=== PATIENT | male | born 1965 | race Caucasian/White ===

== ENCOUNTER 2019-11-27 12:02 | Emergency (ER) | payer OTHER ==
--- NOTE | 2019-11-27 13:56 | ED ---
Complex/Multi-Sys Presentation - HPI Summary HPI Summary: 54 year old M arriving via private car to [facility] accompanied by complains of fatigue, generalized weakness, dizziness, syncope, dark stools, confusion, unsteady gait, falls, speech difficulties starting 2 months ago, and chest heaviness starting this morning. Patient developed fatigue and weakness 2 months ago. Was seen by his primary care provider, placed on Wellbutrin in Oct 2018, developed side effects. Patient had dizziness and syncope while taking it. He has since sopped taking it. reports dark stools which started as intermittent and has become more constant. No abdominal pain. also reports intermittent confusion, unsteady gait, falls, speech difficulties. Had blood work done recently which showed hyponatremia. Sodium 124 per . His primary care provider called yesterday and was told to come to ED to r/o stroke. Today he developed chest heaviness which started after he woke up. No chest pain currently. The patient rates the pain 2/10 in severity. Symptoms aggravated by nothing. Symptoms alleviated by nothing. Admits to drinking ETOH daily. Usually drinks wine and liquor. Usually has half pint to one pint of liquor and some beers. Has been trying to drink less in the last few weeks. Had one beer today. Has been having withdrawal symptoms. Medications reviewed. Allergies noted. - History Of Current Complaint Chief Complaint: EDNeurologicalDeficit Time Seen by Provider: 11/27/19 13:54 Hx Obtained From: Patient, Family/Hide Puller - Onset/Duration: Lasting Weeks - 8, Still Present Severity Currently: Mild - 2/10 Aggravating Factor(s): Nothing Alleviating Factor(s): Nothing - Allergies/Home Medications Allergies/Adverse Reactions: Allergies Allergy/AdvReac Type Severity Reaction Status Date / Time No Known Allergies Allergy Verified 11/27/19 14:49 Home Medications: Home Medications Cholecalciferol TAB* [Vitamin D TAB*] 1,000 unit PO DAILY 11/27/19 [History Confirmed 11/27/19] Thiamine TAB* [Vitamin B-1 TAB 100 MG*] 100 mg PO DAILY 30 Days #30 tab [Rx] Valsartan/Hydrochlorothiazide [Valsartan-Hctz 160-25 mg Tab] 1 tab PO DAILY [History Confirmed 11/27/19] Vitamin B Complex TAB* [B Complex-50*] 1 tab PO DAILY 11/27/19 [History Confirmed 11/27/19] PMH/Surg Hx/FS Hx/Imm Hx Infectious Disease History: No Infectious Disease History: Denies: Traveled Outside the [place] in Last 30 Days - Family History Known Family History: Positive: Other - MS - Social History Alcohol Use: Daily Review of Systems Positive: Fatigue Positive: Other - chest heaviness Positive: Other - dark stools. Negative: Abdominal Pain Neurological/Mental Status: Other - Dizziness, confusion, unsteady gait, speech difficulties Positive: Weakness, Syncope All Other Systems Reviewed And Are Negative: Yes Physical Exam - Summary Physical Exam Summary: Constitutional: Well-developed, Well-nourished, Alert. (-) Distressed Skin: Warm, Dry HENT: Normocephalic; Atraumatic Eyes: Conjunctiva normal Neck: Musculoskeletal ROM normal neck. (-) JVD, (-) Nuchal rigidity Cardio: Rhythm regular, rate normal, Heart sounds normal; Intact distal pulses; Radial pulses are 2+ and symmetric. (-) Murmur Pulmonary/Chest wall: Effort normal. (-) Respiratory distress, (-) Wheezes, (-) Rales Abd: Soft. (-) Tenderness, (-) Distension, (-) Guarding, (-) Rebound Rectal exam chaperoned by Ranjit RN: External hemorrhoids Musculoskeletal: (-) Edema Lymph: (-) Cervical adenopathy Neuro: Alert, PERRL, Oriented x3, Strength normal, Cranial nerves II-XII are grossly intact. SILT, Strength 5/5 BUE and BLE, (-) Dysmetria, (-) Nystagmus, ambulates w steady gait. GCS 15. Psych: Mood and affect Normal Triage Information Reviewed: Yes Vital Signs On Initial Exam: Initial Vitals Temp Pulse Resp BP Pulse Ox 97.3 F 78 16 122/71 95 11/27/19 12:03 11/27/19 12:03 11/27/19 12:03 11/27/19 12:03 11/27/19 12:03 Vital Signs Reviewed: Yes Procedures - Sedation Patient Received Moderate/Deep Sedation with Procedure: No Diagnostics - Vital Signs Vital Signs Temp Pulse Resp BP Pulse Ox 11/27/19 12:03 97.3 F 78 16 122/71 95 - Laboratory Result Diagrams: 11/27/19 14:36 11/27/19 14:36 Lab Statement: Any lab studies that have been ordered have been reviewed, and results considered in the medical decision making process. - Radiology CXR Radiology Interpretation Completed By: Radiologist - IMPRESSION: No acute cardiopulmonary process by radiograph. ED physician has reviewed this imaging report. - CT BRAIN CT Interpretation Completed By: Radiologist - IMPRESSION: NO ACUTE INTRACRANIAL PATHOLOGY. ED physician has reviewed this imaging report. - EKG 1211 Cardiac Rate: NL - 71 BPM EKG Rhythm: Sinus Rhythm Summary of EKG Findings: An EKG at 1211 reveals normal sinus rhythm 71 BPM. Incomplete RBBB. No STEMI. No acute changes. Compared to 2011, new partial RBBB. ED physician has reviewed and interpreted this EKG. Complex Multi-Symp Course/Dx Course Of Treatment: 54 y/o male w hx EtOH abuse p/w multiple complaints. - had episode of weakness/syncope, not feeling well in setting of buproprion use but resolved when stopping medication. - reports dark stools, Hb stable, fecal occult positive, can f/u w PCP could be 2/2 gastritis from EtOH. - gait abnormality, episode of speech problems, none currently and ongoing for some time, CT head negative, could be see in setting of EtOH use. D/w neuro who agrees w plan and recommends thiamine. - episode of chest tightness now resolved, patient attributes to anxiety. EKG unremarkable, Trop negative, CXR normal. Do not suspect ACS. Heart score 2, low risk. - labs w hyponatremia likely 2/2 EtOH. Does not appear symptomatic at this time - Diagnoses Provider Diagnoses: Hyponatremia, Gait abnormality, Blood in stool, Alcohol use disorder - Physician Notifications Discussed Care Of Patient With: Dipesh Barney - Recommended thiamine Time Discussed With Above Provider: 15:58 Discharge ED - Sign-Out/Discharge Documenting (check all that apply): Patient Departure - Discharge Plan Condition: Stable Disposition: HOME Prescriptions: Thiamine TAB* [Vitamin B-1 TAB 100 MG*] 100 mg PO DAILY 30 Days #30 tab Patient Education Materials: Hyponatremia (ED), Alcohol Use Disorder (ED) Referrals: Lamont Garcia AD OPERATIONS INTERN [Primary Care Provider] - Additional Instructions: You were seen in the emergency department for fatigue, abnormal gait, low sodium and blood in her stool. Your sodium was 128, this can be seen in the setting of alcohol use. Please take thiamine once a day as a vitamin. Please follow up with your doctor as your stool showed scant blood in the stool. Please follow up with your primary care doctor in next 2-3 days and return to emergency department for numbness, weakness, falling, confusion, chest pain, worsening or concerning symptoms. It was a pleasure taking care of you today. - Billing Disposition and Condition Condition: STABLE Disposition: Home - Attestation Statements Document Initiated by Arcenio: Yes Documenting Scribe: Erin Gutierrez Provider For Whom Arcenio is Documenting (Include Credential): Juan Tomas MD Scribe Attestation: IErin, scribed for Juan Tomas MD on 11/27/19 at 1653. Scribe Documentation Reviewed: Yes Provider Attestation: The documentation as recorded by the Erin ford accurately reflects the service I personally performed and the decisions made by me, Juan Tomas MD Status of Scribadriana Document: Viewed
--- OUTSIDE RECORDS SUMMARY | 2019-11-27 14:01 | XMS REPORT | Continuity of Care Document ---
:1965 External Reference #:[id number] Author Name [facility] (transmitted by agent of provider Karlene Boone) Address [address] [place] [address] Problems Description No Information Available Social History Type Date Description Comments Sex Unknown Tobacco Use Reviewed: 01/23/19 Heavy tobacco smoker 1 and 1/2 PPD .... (more than 10 started as a cigarettes/day) teenager Smoking Status Reviewed: 02/06/19 Heavy tobacco smoker 1 and 1/2 PPD .... (more than 10 started as a cigarettes/day) teenager ETOH Use Currently consumes 6 beers per night alcohol Tobacco Use Start: Unknown Patient is a current smoker, smokes every day Recreational Drug Use Denies Drug Use Enjoy Exercising Enjoys exercising he is very active at work Allergies, Adverse Reactions, Alerts Description No Known Drug Allergies Medications Active Medications SIG Qnty Indications Ordering Date Provider Vitamin D take 1 capsule by 16caps E55.9 Lamont RSrikanth 10/15/2019 (Ergocalciferol) mouth twice weekly Jose, TRACK MAINTAINER-C for 8 weeks 1.25mg (58722 Ut) Capsules Valsartan-Hydrochlor 1 by mouth every 90tabs I10 Lamont RSrikanth 10/15/2019 othiazide day, replaces PAULA GarciaP-C 160-25mg lisinopril Tablets History Medications Bupropion 1 by mouth 90tabs F32.89 Lamont RSrikanth 10/08/2019 - Hydrochloride ER (XL) every day Jose, TRACK MAINTAINER-C 10/15/2019 150mg Tablets ER 24HR Immunizations CPT Code Status Date Vaccine Lot # [id number] Given 01/23/2019 Tdap (Adacel) [id number] Refused 10/15/2019 Influenza Virus Vaccine, Quadrivalent, 3 Yr > Quad , Preserv Free [id number] Refused 10/08/2019 Influenza Virus Vaccine, Quadrivalent, 3 Yr > Quad , Preserv Free Vital Signs Date Vital Result Comment 10/28/2019 8:57am Weight 174.00 lb Weight 78.926 kg BP Systolic 130 mmHg BP Diastolic 78 mmHg Heart Rate 88 /min Body Temperature 98.0 F Respiratory Rate 16 /min 10/15/2019 3:42pm Weight 176.00 lb Weight 79.834 kg BP Systolic 120 mmHg BP Diastolic 78 mmHg Heart Rate 73 /min Body Temperature 98.2 F Respiratory Rate 16 /min O2 % BldC Oximetry 98 % Results Test Acquired Date Facility Test Result H/L Range Note Comp Metabolic 10/28/2019 [facility] Sodium 127 mmol/ L Low 135-145 Panel [phone] Potassium 4.6 mmol/L Normal 3.5-5.0 Chloride 89 mmol/L Low 101-111 Co2 Carbon Dioxide 30 mmol/L Normal 22-32 Anion Gap 8 mmol/L Normal 2-11 Glucose 99 mg/dL Normal 70-100 Blood Urea Nitrogen 11 mg/dL Normal 6-24 Creatinine 0.83 mg/dL Normal 0.67-1.17 BUN/Creatinine Ratio 13.3 Normal 8-20 Calcium 9.6 mg/dL Normal 8.6-10.3 Total Protein 7.1 g/dL Normal 6.4-8.9 Albumin 4.3 g/dL Normal 3.2-5.2 Globulin 2.8 g/dL Normal 2-4 Albumin/Globulin Ratio 1.5 Normal 1-3 Total Bilirubin 1.10 mg/dL High 0.2-1.0 Alkaline Phosphatase 120 U/L High 34-104 Alt 93 U/L High 7-52 Ast 124 U/L High 13-39 Egfr Non- 96.2 >60 Egfr 116.4 >60 1 CBC Auto 10/28/2019 [facility] White Blood 5.6 10^3/ uL Normal 3.5-10.8 Diff [phone] Count Red Blood Count 4.40 10^6/uL Normal 4.18-5.48 Hemoglobin 15.9 g/dL Normal 14.0-18.0 Hematocrit 45 % Normal 42-52 Mean Corpuscular Volume 103 fL High 80-94 Mean Corpuscular Hemoglobin 36 pg High 27-31 Mean Corpuscular HGB Conc 35 g/dL Normal 31-36 Red Cell Distribution Width 14 % Normal 10-15 Platelet Count 141 10^3/uL Low 150-450 Mean Platelet Volume 7.9 fL Normal 7.4-10.4 Abs Neutrophils 3.7 10^3/uL Normal 1.5-7.7 Abs Lymphocytes 1.0 10^3/uL Normal 1.0-4.8 Abs Monocytes 0.9 10^3/uL High 0-0.8 Abs Eosinophils 0.0 10^3/uL Normal 0-0.6 Abs Basophils 0.0 10^3/uL Normal 0-0.2 Abs Nucleated RBC 0.0 10^3/uL Granulocyte % 65.4 % Lymphocyte % 17.2 % Monocyte % 15.9 % Eosinophil % 0.8 % Basophil % 0.7 % Nucleated Red Blood Cells % 0.2 Laboratory 10/28/2019 [facility] TSH (Thyroid 2.31 Normal 0.34-5.60 2 test finding [phone] Stim Horm) mcIU/mL Laboratory 10/08/2019 [facility] Vitamin D 14.9 ng/ mL Low 20-50 3 test finding [phone] Total 25(Oh) Vitamin B12 548 pg/mL Normal 180-914 4 Testosterone 10/08/2019 [facility] Testosterone 329 ng/dL 240-950 5 Profile [phone] Free Testosterone ng/dl 4.94 ng/dL 3.87-14.7 6 Bioavailable Testosterone 39 ng/dL Abnormal 50-190 7 Laboratory 10/08/2019 [facility] TSH (Thyroid 2.27 Normal 0.34-5.60 8 test finding [phone] Stim Horm) mcIU/mL Comp Metabolic 08/30/2019 [facility] Sodium 133 mmol/ L Low 135-145 Panel [phone] Potassium 4.0 mmol/L Normal 3.5-5.0 Chloride 97 mmol/L Low 101-111 Co2 Carbon Dioxide 29 mmol/L Normal 22-32 Anion Gap 7 mmol/L Normal 2-11 Glucose 83 mg/dL Normal 70-100 Blood Urea Nitrogen 5 mg/dL Low 6-24 Creatinine 0.76 mg/dL Normal 0.67-1.17 BUN/Creatinine Ratio 6.6 Low 8-20 Calcium 9.4 mg/dL Normal 8.6-10.3 Total Protein 7.0 g/dL Normal 6.4-8.9 Albumin 4.2 g/dL Normal 3.2-5.2 Globulin 2.8 g/dL Normal 2-4 Albumin/Globulin Ratio 1.5 Normal 1-3 Total Bilirubin 0.70 mg/dL Normal 0.2-1.0 Alkaline Phosphatase 70 U/L Normal 34-104 Alt 48 U/L Normal 7-52 Ast 75 U/L High 13-39 Egfr Non- 106.5 >60 Egfr 128.8 >60 9 Lipid Profile 08/30/2019 [facility] Triglycerides 97 mg/dL 10 (Trig/Chol/HDL) [phone] Cholesterol 162 mg/dL 11 HDL Cholesterol 75.0 mg/dL 12 LDL Cholesterol 68 mg/dL 13 1 Because ethnic data is not always readily available, this report includes an eGFR for both -Americans and non- Americans. The National Kidney Disease Education Program (NKDEP) does not endorse the use of the MDRD equation for patients that are not between the ages of 18 and 70, are , have extremes of body size, muscle mass, or nutritional status, or are non- or non-. According to the National Kidney Foundation, irrespective of diagnosis, the stage of the disease is based on the level of kidney function: Stage Description GFR(mL/min/1.73 m(2)) 1 Kidney damage with normal or decreased GFR 90 2 Kidney damage with mild decrease in GFR 60-89 3 Moderate decrease in GFR 30-59 4 Severe decrease in GFR 15-29 5 Kidney failure <15 (or dialysis) 2 [id number] 3 Total 25-Hydroxyvitamin D2 and D3 (25-OH-VitD) <10 ng/mL (severe deficiency) 10-19 ng/mL (mild to moderate deficiency) 20-50 ng/mL (optimum levels) 51-80 ng/mL (increased risk of hypercalciuria) >80 ng/mL (toxicity possible) 4 Normal Range 180 to 914 Indeterminate Range 145 to 180 Deficient Range <145 5 ADDITIONAL INFORMATION Testing performed by Liquid Chromatography-Tandem Mass Spectrometry (LC-MS/MS). This test was developed and its performance characteristics determined by [facility] in a manner consistent with CLIA requirements. This test has not been cleared or approved by the U.S. Food and Drug Administration. 6 ADDITIONAL INFORMATION Testing performed by Equilibrium Dialysis. This test was developed and its performance characteristics determined by [facility] in a manner consistent with CLIA requirements. This test has not been cleared or approved by the U.S. Food and Drug Administration. 7 ADDITIONAL INFORMATION Testing performed by Differential Precipitation. This test was developed and its performance characteristics determined by [facility] in a manner consistent with CLIA requirements. This test has not been cleared or approved by the U.S. Food and Drug Administration. Test Performed by: [facility] [place] [address] Lipcoat Sprayer: Bandar Granger M.D. Ph.D.; CLIA# [id number] 9 Because ethnic data is not always readily available, this report includes an eGFR for both -Americans and non- Americans. The National Kidney Disease Education Program (NKDEP) does not endorse the use of the MDRD equation for patients that are not between the ages of 18 and 70, are , have extremes of body size, muscle mass, or nutritional status, or are non- or non-. According to the National Kidney Foundation, irrespective of diagnosis, the stage of the disease is based on the level of kidney function: Stage Description GFR(mL/min/1.73 m(2)) 1 Kidney damage with normal or decreased GFR 90 2 Kidney damage with mild decrease in GFR 60-89 3 Moderate decrease in GFR 30-59 4 Severe decrease in GFR 15-29 5 Kidney failure <15 (or dialysis) 10 Desirable: <150 Borderline High: 150-199 High: 200-499 Very High: >500 11 Desirable: <200 Borderline High: 200-239 High: >239 12 Low: <40 Desirable: 40-60 High: >60 13 Desirable: <100 Near Optimal: 100-129 Borderline High: 130-159 High: 160-189 Very High: >189 Procedures Date Code Description Status 10/28/2019 29514 EKG, at Least 12 Leads w/Interpretation and Report Completed 02/07/2017 11721089 Colonoscopy Completed Medical Devices Description No Information Available Encounters Type Date Location Provider Dx Diagnosis Office Visit 10/28/2019 Main Office Traci Pedraza5 Syncope and collapse 9:00a Office Visit 10/15/2019 Main Office Lamont Garcia, E55.9 Vitamin D deficiency, 3:45p TRACK MAINTAINER-C unspecified F32.89 Other specified depressive episodes R53.1 Weakness R05 Cough I10 Essential (primary) hypertension Office Visit 10/08/2019 1:45p Main Office Shawnti R. F32.89 Other specified Storm, TRACK MAINTAINER-C depressive episodes R53.83 Other fatigue Office Visit 08/30/2019 10:00a Main Office Shawnti R. Storm, I10 Essential (primary) TRACK MAINTAINER-C hypertension Z72.0 Tobacco use Assessments Date Code Description Provider 11/11/2019 K70.9 Alcoholic liver disease, unspecified [facility] 10/28/2019 R55 Syncope and collapse Jv Harper MD 10/15/2019 E55.9 Vitamin D deficiency, unspecified Shawnti R. Storm, TRACK MAINTAINER-C 10/15/2019 F32.89 Other specified depressive episodes Shawnti R. Storm, TRACK MAINTAINER- C 10/15/2019 R53.1 Weakness Shawnti R. Storm, TRACK MAINTAINER-C 10/15/2019 R05 Cough Shawnti R. Storm, TRACK MAINTAINER-C 10/15/2019 I10 Essential (primary) hypertension Shawnti R. Storm, TRACK MAINTAINER-C 10/08/2019 F32.89 Other specified depressive episodes Shawnti R. Storm, TRACK MAINTAINER- C 10/08/2019 R53.83 Other fatigue Shawnti R. Storm, TRACK MAINTAINER-C 08/30/2019 I10 Essential (primary) hypertension NAYELI Higgins 08/30/2019 Z72.0 Tobacco use NAYELI Higgins Plan of Treatment Future Appointment(s):03/03/2020 8:45 am - NAYELI Higgins at Main [id number]/28/2019 - Jv Harper, MDR55 Syncope and collapseComments:He has had an episode of cardiac sounding syncope, several days ago. at this point he is fully asymptomatic. the symptoms are not consistent with stroke or TIA, they do not seem fully consistent with aseizure either with the absence of post ictal state and at least one observed episode that did not show any convulsions.I am very concerned that this issue represents a paroxysmal episode of severe cardiac arrhythmia. It is actually happened several times based on history.EKG shows a normal sinus rhythm today.We collected some labs today to ensure an absence of metabolic causes, and I recommended he see cardiology as soon as possible to discuss further testing.Referral:Ryan Wolfe D.O., Cardiology/Phys/OsteoFollow up:Refer to cardiology, relatively urgent Functional Status Description No Information Available Mental Status Description No Information Available Referrals Refer to Dr Reason for Referral Status Appt Date Ryan Wolfe D.O. Scheduled 11/11/[address] [address] [phone]
--- OUTSIDE RECORDS SUMMARY | 2019-11-27 14:01 | XMS REPORT | Continuity of Care Document ---
:1965 External Reference #:[id number] Author Name Jv Harper MD Address [address] [place] [address] Problems Description No Information Available Social History [...] D take 1 capsule by 16caps E55.9 Emilioi R. 10/15/2019 (Ergocalciferol) mouth twice weekly Jose WORD PROCESSOR TECHNICIAN-C for 8 weeks 1.25mg (96697 Ut) Capsules Valsartan-Hydrochlor 1 by mouth every 90tabs I10 Jamwnti R. 10/15/2019 othiazide day, replaces Jose, WORD PROCESSOR TECHNICIAN-C 160-25mg lisinopril Tablets History Medications Bupropion 1 by mouth 90tabs F32.89 Jamwnti R. 10/08/2019 - Hydrochloride ER (XL) every day Jose, WORD PROCESSOR TECHNICIAN-C 10/15/2019 150mg Tablets ER 24HR Immunizations CPT Code Status Date Vaccine Lot # [id number] Given 01/23/2019 Tdap (Adacel) [id number] Refused 10/15/2019 Influenza Virus Vaccine, Quadrivalent, 3 Yr > Quad , Preserv Free [id number] Refused 10/08/2019 Influenza Virus Vaccine, Quadrivalent, 3 [...] Date Facility Test Result H/L Range Note CBC Auto 10/28/2019 [facility] White Blood 5.6 10^3/ uL Normal 3.5-10.8 Diff [phone] Count Red Blood Count 4.40 10^6/uL Normal [...] Nucleated Red Blood Cells % 0.2 Laboratory test 10/28/2019 [facility] TSH (Thyroid < pending> finding [phone] Stim Horm) Order 10/28/2019 In Office EKG <pending> Laboratory test 10/08/2019 [facility] Vitamin D 14.9 ng/mL Low 20-50 1 finding [phone] Total 25(Oh) Vitamin B12 548 pg/mL Normal 180-914 2 Testosterone 10/08/2019 [facility] Testosterone 329 ng/dL 240-950 3 Profile [phone] Free Testosterone ng/dl 4.94 ng/dL 3.87-14.7 4 Bioavailable Testosterone 39 ng/dL Abnormal 50-190 5 Laboratory 10/08/2019 [facility] TSH (Thyroid 2.27 Normal 0.34-5.60 6 test finding [phone] Stim Horm) mcIU/mL Comp Metabolic 08/30/2019 [facility] Sodium 133 mmol/ L Low 135-145 Panel [phone] Potassium 4.0 mmol/L Normal 3.5-5.0 Chloride 97 [...] Egfr Non- 106.5 >60 Egfr 128.8 >60 7 Lipid Profile 08/30/2019 [facility] Triglycerides 97 mg/dL 8 (Trig/Chol/HDL) [phone] Cholesterol 162 mg/dL 9 HDL Cholesterol 75.0 mg/dL 10 LDL Cholesterol 68 mg/dL 11 1 Total 25-Hydroxyvitamin D2 and D3 (25-OH-VitD) <10 ng/mL (severe deficiency) 10-19 ng/mL (mild to moderate deficiency) 20-50 ng/mL (optimum levels) 51-80 ng/mL (increased risk of hypercalciuria) >80 ng/mL (toxicity possible) 2 Normal Range 180 to 914 Indeterminate Range 145 to 180 Deficient Range <145 3 ADDITIONAL INFORMATION Testing performed by Liquid Chromatography-Tandem Mass Spectrometry (LC-MS/MS). This test was developed and its performance characteristics determined by [facility] in a manner consistent with CLIA requirements. This test has not been cleared or approved by the U.S. Food and Drug Administration. 4 ADDITIONAL INFORMATION Testing performed by [facility]. This test was developed and its performance characteristics determined by [facility] in a manner consistent with CLIA requirements. This test has not been cleared or approved by the U.S. Food and Drug Administration. 5 ADDITIONAL INFORMATION Testing performed by Differential Precipitation. This test was developed and its performance characteristics determined by [facility] in a manner consistent with CLIA requirements. This test has not been cleared or approved by the U.S. Food and Drug Administration. Test Performed by: [facility] - [address] [address] Line Out Worker: Bandar Granger M.D. Ph.D.; CLIA# [id number] 7 Because ethnic data is not always readily [...] 15-29 5 Kidney failure <15 (or dialysis) 8 Desirable: <150 Borderline High: 150-199 High: 200-499 Very High: >500 9 Desirable: <200 Borderline High: 200-239 High: >239 10 Low: <40 Desirable: 40-60 High: >60 11 Desirable: <100 Near Optimal: 100-129 Borderline High: 130-159 High: 160-189 Very High: >189 Procedures Date Code Description Status 10/28/2019 94106 EKG, at Least 12 Leads w/Interpretation and Report Completed 02/07/2017 84238571 Colonoscopy Completed Medical Devices Description No Information Available Encounters Type Date Location Provider Dx Diagnosis Office Visit 10/08/2019 Main Office Lamont Garcia, F32.89 Other specified 1:45p WORD PROCESSOR TECHNICIAN-C depressive episodes R53.83 Other fatigue Office Visit 08/30/2019 10:00a Main Office Shawjacei R. Jose, I10 Essential (primary) WORD PROCESSOR TECHNICIAN-C hypertension Z72.0 Tobacco use Assessments Date Code Description Provider 10/28/2019 R55 Syncope and collapse Jv Harper MD 10/15/2019 E55.9 Vitamin D deficiency, unspecified Emilioi R. Jose, WORD PROCESSOR TECHNICIAN-C 10/15/2019 F32.89 Other specified depressive episodes Shawnti R. Jose, WORD PROCESSOR TECHNICIAN- C 10/15/2019 R53.1 Weakness Shawnti R. Jose, WORD PROCESSOR TECHNICIAN-C 10/15/2019 R05 Cough Shawnti R. Storm, WORD PROCESSOR TECHNICIAN-C 10/15/2019 I10 Essential (primary) hypertension Shawnti R. Jose, WORD PROCESSOR TECHNICIAN-C 10/08/2019 F32.89 Other specified depressive episodes Shawnti R. Jose, WORD PROCESSOR TECHNICIAN- C 10/08/2019 R53.83 Other fatigue Shawnti R. Jose, WORD PROCESSOR TECHNICIAN-C 08/30/2019 I10 Essential (primary) hypertension Shawnti R. Jose, WORD PROCESSOR TECHNICIAN-C 08/30/2019 Z72.0 Tobacco use NAYELI Higgins Plan of Treatment Future Appointment(s):03/03/2020 8:45 am - NAYELI Higgins at Main [id number]/28/2019 - Jv Harper, MDR55 Syncope and collapseComments:He [...] as soon as possible to discuss further testing.Follow up:Refer to cardiology, relatively urgent Functional Status Description No Information Available Mental Status Description No Information Available Referrals Description No Information Available
--- OUTSIDE RECORDS SUMMARY | 2019-11-27 14:01 | XMS REPORT | Continuity of Care Document ---
:1965 External Reference #:[id number] Author Name Stefany Navarrete M.D. (transmitted by agent of provider Nurys Easton) Address [address] [facility] [address] [place] [address] Care Team Providers Name Role Phone Jose NORMA Miguel - Family Care Team Information Study Assistant [phone] Problems Description No Information Available Social History Type Date Description Comments Sex Unknown ETOH Use consumes 2-3 beers per day Tobacco Use Start: Unknown Heavy tobacco smoker (more than 10 cigarettes/day) Recreational Drug Use Regularly uses Marijuana Smoking Status Reviewed: 11/06/19 Heavy tobacco smoker (more than 10 cigarettes/day) Exercise Type/Frequency 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 Allergies, Adverse Reactions, Alerts Description No Known Drug Allergies Medications Active Medications SIG Qnty Indications Ordering Provider Date Vitamin D 50,000 Take one tab Unknown Units Monday and Monday Valsartan-Hydrochloro 1 by mouth every Unknown thiazide day 160-25mg Tablets Immunizations Description No Information Available Vital Signs Date Vital Result Comment 11/06/2019 1:53pm Height 69.5 inches 5'9.50" Weight 174.12 lb with shoes Heart Rate 98 /min Radial,regular BP Systolic Sitting 118 mmHg LA, reg cuff BP Diastolic Sitting 70 mmHg LA, reg cuff BP Systolic Standing 120 mmHg Ra sitting,reg cuff BP Diastolic Standing 68 mmHg Ra sitting,reg cuff BP Systolic Lying Down 108 mmHg Ra standing,reg cuff BP Diastolic Lying Down 66 mmHg Ra standing,reg cuff BMI (Body Mass Index) 25.3 kg/m2 Ejection Fraction NA No echo Results Description No Information Available Procedures Date Code Description Status 11/11/2019 98212 Holter Monitor Review (24 hr)dr review & interp only Completed 11/07/2019 71130 ECG Monitor/Recording W/Visual Superimposition Scanning Completed 11/07/2019 98797 ECG Monitor/Recording W/Visual Superimposition Scanning Completed 11/06/2019 23868 EKG Tracing & Interpretation Completed Medical Devices Description No Information Available Encounters Type Date Location Provider Dx Diagnosis Office Visit 11/06/2019 [facility] Stefany SSrikanth I10 Essential ( primary) 2:20p Marlon Navarrete hypertension R53.83 Other fatigue R55 Syncope and collapse R00.0 Tachycardia, unspecified R94.31 Abnormal electrocardiogram [ECG] [EKG] F17.210 Nicotine dependence, cigarettes, uncomplicated Assessments Date Code Description Provider 11/11/2019 R55 Syncope and collapse Stefany Navarrete M.D. 11/07/2019 R55 Syncope and collapse Stefany Navarrete M.D. 11/07/2019 R55 Syncope and collapse Nurse Visit cc 11/06/2019 I10 Essential (primary) hypertension Stefany Navarrete M.D. 11/06/2019 R53.83 Other fatigue Stefany Navarrete M.D. 11/06/2019 R55 Syncope and collapse Stefany Navarrete M.D. 11/06/2019 R00.0 Tachycardia, unspecified Stefany Navarrete M.D. 11/06/2019 R94.31 Abnormal electrocardiogram [ECG] [EKG] Stefany Navarrete M.D. 11/06/2019 F17.210 Nicotine dependence, cigarettes, Stefany Navarrete M.D. uncomplicated Plan of Treatment Future Appointment(s):01/21/2020 4:20 pm - Stefany Navarrete M.D. at [facility]11/29/2019 2:00 pm - [place] [facility] Schedule at [facility]12/10/2019 10:00 am - [place] [facility] Schedule at [facility]2019 10:30 am - Gurdeep Melchor.D. at [facility]11/06/2019 - Stefany Navarrete M.D.I10 Essential (primary) pswytdpgamulX06.83 Other evpgtudE47 Syncope and collapseNew Orders:Echocardiogram, Scheduled: tress Test, Exercise Echocardiogram, Scheduled: 12/10/19Follow up:ov 4-8 wks ov to discuss all mlinlG66.0 Tachycardia, naqfmseskdbG00.31 Abnormal electrocardiogram [ECG] [EKG]F17.210 Nicotine dependence, cigarettes, uncomplicated Functional Status Description No Information Available Mental Status Description No Information Available Referrals Description No Information Available
--- OUTSIDE RECORDS SUMMARY | 2019-11-27 14:01 | XMS REPORT | Continuity of Care Document ---
:1965 External Reference #:[id number] Author Name [facility] (transmitted by agent of provider Deidra Price) Address [address] [place] [address] Problems Description No Information Available Social History Type Date Description Comments Sex Unknown Tobacco Use Reviewed: 01/23/19 Heavy tobacco smoker 1 and 1/ PPD .... (more than 10 started as [...] Lamont RSrikanth 10/15/2019 (Ergocalciferol) mouth twice weekly Jose IDENTIFICATION TECHNICIAN-C for 8 weeks 1.25mg (46440 Ut) Capsules Valsartan-Hydrochlor 1 by mouth every 90tabs I10 Lamont RSrikanth 10/15/2019 othiazide day, replaces Jose, IDENTIFICATION TECHNICIAN-C 160-25mg lisinopril Tablets History Medications Bupropion 1 by mouth 90tabs F32.89 Jamwzana R. 10/08/2019 - Hydrochloride ER (XL) every day Jose, IDENTIFICATION TECHNICIAN-C 10/15/2019 150mg Tablets ER 24HR Immunizations CPT Code Status Date Vaccine Lot # [id number] Given 01/23/2019 Tdap (Adacel) [id number] Refused 10/15/2019 Influenza Virus Vaccine, Quadrivalent, 3 Yr > Quad , Preserv Free 51407 Refused 10/08/2019 Influenza Virus Vaccine, Quadrivalent, 3 [...] Test Result H/L Range Note Comp Metabolic 11/11/2019 [facility] Sodium 127 mmol/ L Low 135-145 Panel [phone] Potassium 4.4 mmol/L Normal 3.5-5.0 Chloride 88 mmol/L Low 101-111 Co2 Carbon Dioxide 30 mmol/L Normal 22-32 Anion Gap 9 mmol/L Normal 2-11 Glucose 139 mg/dL High 70-100 Blood Urea Nitrogen 10 mg/dL Normal 6-24 Creatinine 0.84 mg/dL Normal 0.67-1.17 BUN/Creatinine Ratio 11.9 Normal 8-20 Calcium 9.5 mg/dL Normal 8.6-10.3 Total Protein 7.0 g/dL Normal 6.4-8.9 Albumin 4.4 g/dL Normal 3.2-5.2 Globulin 2.6 g/dL Normal 2-4 Albumin/Globulin Ratio 1.7 Normal 1-3 Total Bilirubin 0.70 mg/dL Normal 0.2-1.0 Alkaline Phosphatase 149 U/L High 34-104 Alt 54 U/L High 7-52 Ast 88 U/L High 13-39 Egfr Non- 94.9 >60 Egfr 114.8 >60 1 Comp Metabolic 10/28/2019 [facility] Sodium 127 mmol/ L Low 135-145 Panel [phone] Potassium 4.6 mmol/L Normal 3.5-5.0 Chloride 89 [...] Egfr Non- 96.2 >60 Egfr 116.4 >60 2 CBC Auto 10/28/2019 [facility] White Blood 5.6 10^3/ uL Normal 3.5-10.8 Diff [phone] Count Red Blood Count 4.40 10^6/uL Normal [...] Red Blood Cells % 0.2 Laboratory 10/28/2019 [facility] TSH (Thyroid 2.31 Normal 0.34-5.60 3 test finding [phone] Stim Horm) mcIU/mL Laboratory 10/08/2019 [facility] Vitamin D 14.9 ng/ mL Low 20-50 4 test finding [phone] Total 25(Oh) Vitamin B12 548 pg/mL Normal 180-914 5 Testosterone 10/08/2019 [facility] Testosterone 329 ng/dL 240-950 6 Profile [phone] Free Testosterone ng/dl 4.94 ng/dL 3.87-14.7 7 Bioavailable Testosterone 39 ng/dL Abnormal 50-190 8 Laboratory 10/08/2019 [facility] TSH (Thyroid 2.27 Normal 0.34-5.60 9 test finding [phone] Stim Horm) mcIU/mL Comp Metabolic 08/30/2019 [facility] Sodium 133 mmol/ L Low 135-145 Panel [phone] Potassium 4.0 mmol/L Normal 3.5-5.0 Chloride 97 [...] Egfr Non- 106.5 >60 Egfr 128.8 >60 10 Lipid Profile 08/30/2019 [facility] Triglycerides 97 mg/dL 11 (Trig/Chol/HDL) [phone] Cholesterol 162 mg/dL 12 HDL Cholesterol 75.0 mg/dL 13 LDL Cholesterol 68 mg/dL 14 1 Because ethnic data is not always [...] 5 Kidney failure <15 (or dialysis) 2 Because ethnic data is not always readily [...] 15-29 5 Kidney failure <15 (or dialysis) 3 [id number] 4 Total 25-Hydroxyvitamin D2 and D3 (25-OH-VitD) <10 ng/mL (severe deficiency) 10-19 ng/mL (mild to moderate deficiency) 20-50 ng/mL (optimum levels) 51-80 ng/mL (increased risk of hypercalciuria) >80 ng/mL (toxicity possible) 5 Normal Range 180 to 914 Indeterminate Range 145 to 180 Deficient Range <145 6 ADDITIONAL INFORMATION Testing performed by Liquid Chromatography-Tandem Mass Spectrometry (LC-MS/MS). This test was developed and its performance characteristics determined by [facility] in a manner consistent with CLIA requirements. This test has not been cleared or approved by the U.S. Food and Drug Administration. 7 ADDITIONAL INFORMATION Testing performed by [facility]. This test was developed and its performance characteristics determined by [facility] in a manner consistent with CLIA requirements. This test has not been cleared or approved by the U.S. Food and Drug Administration. 8 ADDITIONAL INFORMATION Testing performed by [facility]recip[facility]. This test was developed and its performance characteristics determined by [facility] in a manner consistent with CLIA requirements. This test has not been cleared or approved by the U.S. Food and Drug Administration. Test Performed by: [place] [address] [employer] Restorer: Bandar Granger M.D. Ph.D.; CLIA# [id number] 10 Because ethnic data is not always readily [...] 15-29 5 Kidney failure <15 (or dialysis) 11 Desirable: <150 Borderline High: 150-199 High: 200-499 Very High: >500 12 Desirable: <200 Borderline High: 200-239 High: >239 13 Low: <40 Desirable: 40-60 High: >60 14 Desirable: <100 Near Optimal: 100-129 Borderline High: 130-159 High: 160-189 Very High: >189 Procedures Date Code Description Status 10/28/2019 77627 EKG, at Least 12 Leads w/Interpretation and Report Completed 02/07/2017 [id number] Colonoscopy Completed Medical Devices Description No Information Available Encounters Type Date Location Provider Dx Diagnosis Office Visit 10/28/2019 Main Office Jv Harper, R55 Syncope and collapse 9:00a Office Visit 10/15/2019 Main Office Jamwzana RSrikanth Garcia, E55.9 Vitamin D deficiency, 3:45p IDENTIFICATION TECHNICIAN-C unspecified F32.89 Other specified depressive episodes R53.1 Weakness R05 Cough I10 Essential (primary) hypertension Office Visit 10/08/2019 1:45p Main Office Shawnti R. F32.89 Other specified Storm, IDENTIFICATION TECHNICIAN-C depressive episodes R53.83 Other fatigue Office Visit 08/30/2019 10:00a Main Office Shawnti R. Storm, I10 Essential (primary) IDENTIFICATION TECHNICIAN-C hypertension Z72.0 Tobacco use Assessments Date Code Description Provider 11/11/2019 K70.9 Alcoholic liver disease, unspecified Shawnti R. Storm, IDENTIFICATION TECHNICIAN- C 11/11/2019 K70.9 Alcoholic liver disease, unspecified [facility] 10/28/2019 R55 Syncope and collapse Jv Harper MD 10/15/2019 E55.9 Vitamin D deficiency, unspecified Shawnti R. Storm, IDENTIFICATION TECHNICIAN-C 10/15/2019 F32.89 Other specified depressive episodes Shawnti R. Storm, IDENTIFICATION TECHNICIAN- C 10/15/2019 R53.1 Weakness Shawnti R. Storm, IDENTIFICATION TECHNICIAN-C 10/15/2019 R05 Cough Shawnti R. Storm, IDENTIFICATION TECHNICIAN-C 10/15/2019 I10 Essential (primary) hypertension Shawnti R. Storm, IDENTIFICATION TECHNICIAN-C 10/08/2019 F32.89 Other specified depressive episodes Shawnti R. Storm, IDENTIFICATION TECHNICIAN- C 10/08/2019 R53.83 Other fatigue Shawnti R. Storm, IDENTIFICATION TECHNICIAN-C 08/30/2019 I10 Essential (primary) hypertension Shawnti R. Storm, IDENTIFICATION TECHNICIAN-C 08/30/2019 Z72.0 Tobacco use NAYELI Higgins Plan of Treatment Future Appointment(s):03/03/2020 8:45 am - NAYELI Higgins at Main [id number]/28/2019 - Jv Harper, MDR55 Syncope and collapseComments:He [...] Description No Information Available Referrals Refer to Reason for Referral Status Appt Date Ryan Wolfe D.O. Scheduled 11/11/[address] [address] [phone]
--- OUTSIDE RECORDS SUMMARY | 2019-11-27 14:01 | XMS REPORT | Continuity of Care Document ---
:1965 External Reference #:[id number] Author Name Stefany Navarrete M.D. (transmitted by agent of provider Tamika Jang) Address [address] [facility] [address] [place] [address] Care Team Providers Name Role Phone Jam GarciaNORMA worrell - Family Care Team Information Perioperative Educator [phone] Problems Description No Information Available Social History [...] Information Available Procedures Date Code Description Status 11/06/2019 52875 EKG Tracing & Interpretation Completed Medical Devices Description No Information Available Encounters Description No Information Available Assessments Date Code Description Provider 11/06/2019 I10 Essential (primary) hypertension Steafny Navarrete M.D. 11/06/2019 R53.83 Other fatigue Stefany Navarrete M.D. 11/06/2019 R55 Syncope and collapse Stefany Navarrete M.D. 11/06/2019 R00.0 Tachycardia, unspecified Stefany Navarrete M.D. 11/06/2019 Z71.6 Tobacco abuse counseling Stefany Navarrete M.D. Plan of Treatment Future Appointment(s):01/21/2020 4:20 pm - Stefany Nav[facility]rete M.D. at [facility]11/29/2019 2:00 pm - [place] [facility] Schedule at [facility]12/10/2019 10:00 am - [place] [facility] Schedule at [facility]2019 10:30 am - Stefany Navarrete M.D. at [facility]11/08/2019 1: 30 pm - Nurse Visit cc at [facility]11/07/2019 3:00 pm - Nurse Visit cc at [facility]11/06/2019 - Stefany Navarrete M.D.I10 Essential ( primary) mwlwehikbxdwZ84.83 Other jmmaftyN86 Syncope and collapseNew Orders:24 hour holter monitor, Scheduled: 11/06/19Echocardiogram, Ordered: 11/06/19tress Test, Exercise Echocardiogram, Ordered: 11/06/19Follow up:ov 4-8 wks ov to discuss all kzhbuI96.0 Tachycardia, rvckbvuyzpeW06.6 Tobacco abuse counseling Functional Status Description No Information Available Mental Status Description No Information Available Referrals Description No Information Available
--- OUTSIDE RECORDS SUMMARY | 2019-11-27 14:01 | XMS REPORT | Continuity of Care Document ---
:1965 External Reference #:[id number] Author Name NAYELI Higgins Address [address] [place] [address] Problems Description No Information Available Social History [...] take 1 capsule by 16caps E55.9 Lamont Montes 10/15/2019 (Ergocalciferol) mouth twice weekly PAULA GarciaP-C for 8 weeks 1.25mg (93190 Ut) Capsules Valsartan-Hydrochlor 1 by mouth every 90tabs I10 Lamont RSrikanth 10/15/2019 othiazide day, replaces NAYELI Garcia 160-25mg lisinopril Tablets History Medications Bupropion 1 by mouth 90tabs F32.89 Lamont RSrikanth 10/08/2019 - Hydrochloride ER (XL) every day CLAU Garcia-C 10/15/2019 150mg Tablets ER 24HR Immunizations CPT Code Status Date Vaccine Lot # [id number] Given 01/23/2019 Tdap (Adacel) [id number] Refused 10/15/2019 Influenza Virus Vaccine, Quadrivalent, 3 Yr > Quad , Preserv Free [id number] Refused 10/08/2019 Influenza Virus Vaccine, Quadrivalent, 3 Yr > Quad , Preserv Free Vital Signs Date Vital Result Comment 10/15/2019 3:42pm Weight 176.00 lb Weight 79.834 kg BP Systolic 120 mmHg BP Diastolic 78 mmHg Heart Rate 73 /min Body Temperature 98.2 F Respiratory Rate 16 /min O2 % BldC Oximetry 98 % 10/08/2019 1:49pm Weight 180.00 lb Weight 81.648 kg BP Systolic 120 mmHg BP Diastolic 60 mmHg Heart Rate 78 /min Body Temperature 97.8 F Respiratory Rate 16 /min Results Test Acquired Date Facility Test Result H/L Range Note Laboratory test 10/08/2019 Laboratory Vitamin D 14.9 ng/mL Low 20-50 1 finding [phone] Total 25(Oh) Vitamin B12 548 pg/mL Normal 180-914 2 Testosterone 10/08/2019 Laboratory Testosterone 329 ng/dL 240-950 3 Profile [phone] Free Testosterone ng/dl 4.94 ng/dL 3.87-14.7 4 Bioavailable Testosterone 39 ng/dL Abnormal 50-190 5 Laboratory 10/08/2019 Laboratory TSH (Thyroid 2.27 Normal 0.34-5.60 6 test finding [phone] Stim Horm) mcIU/mL Comp Metabolic 08/30/2019 Laboratory Sodium 133 mmol/ L Low 135-145 Panel [phone] Potassium 4.0 mmol/L Normal 3.5-5.0 Chloride 97 [...] Egfr 128.8 >60 7 Lipid Profile 08/30/2019 Laboratory Triglycerides 97 mg/dL 8 (Trig/Chol/HDL) [phone] Cholesterol 162 mg/dL 9 HDL Cholesterol 75.0 [...] developed and its performance characteristics determined by [facility] in a manner consistent with CLIA requirements. This test has not been cleared or approved by the U.S. Food and Drug Administration. 4 ADDITIONAL INFORMATION Testing performed by [facility]. This test was developed and its performance characteristics determined by [facility] in a manner consistent with CLIA requirements. This test has not been cleared or approved by the U.S. Food and Drug Administration. 5 ADDITIONAL INFORMATION Testing performed by [facility]. This test was developed and its performance characteristics determined by [facility] in a manner consistent with CLIA requirements. This test has not been cleared or approved by the U.S. Food and Drug Administration. Test Performed by: [facility] [address] [place] [address] Residential Lawn Specialist: Bandar Granger M.D. Ph.D.; [facility]# [id number] 7 Because ethnic data is not always [...] High: >189 Procedures Date Code Description Status 02/07/2017 32187179 Colonoscopy Completed Medical Devices Description No Information Available Encounters Type Date Location Provider Dx Diagnosis Office Visit 08/30/2019 Main Office Lamont Garcia, I10 Essential ( primary) 10:00a CLAU-Kee hypertension Z72.0 Tobacco use Assessments Date Code Description Provider 10/15/2019 E55.9 Vitamin D deficiency, unspecified NAYELI Higgins 10/15/2019 F32.89 Other specified depressive episodes JACQUIE Higgins 10/15/2019 R53.1 Weakness NAYELI Higgins 10/15/2019 R05 Cough NAYELI Higgins 10/15/2019 I10 Essential (primary) hypertension NAYELI Higgins 10/08/2019 F32.89 Other specified depressive episodes JACQUIE Higgins 10/08/2019 R53.83 Other fatigue NAYELI Higgins 08/30/2019 I10 Essential (primary) hypertension NAYELI Higgins 08/30/2019 Z72.0 Tobacco use NAYELI Higgins Plan of Treatment Future Appointment(s):10/31/2019 9:00 am - NAYELI Higgins at Main Osrcll6403/03/2020 8:45 am - NAYELI Higgins at Main Hjopsq7910/15/2019 - JACQUIE HigginsCE55.9 Vitamin D deficiency, unspecifiedNew Medication: Vitamin D (Ergocalciferol) 1.25 mg (59390 Ut) - take 1 capsule by mouth twice weekly for 8 weeksFollow up:2 weeks, cancel appt on the 64vsA22.89 Other specified depressive djiwoqmxZ98.1 UcqulvewG94 DqlgbG71 Essential (primary) hypertensionNew Medication:Valsartan-Hydrochlorothiazide 160-25 mg - 1 by mouth every day, replaces lisinoprilComments:stop KWAKU and start ARB Functional Status Description No Information Available Mental Status Description No Information Available Referrals Description No Information Available
--- OUTSIDE RECORDS SUMMARY | 2019-11-27 14:01 | XMS REPORT | Continuity of Care Document ---
:1965 External Reference #:[id number] Author Name NAYELI Higgins Address [address] [place] [address] Problems Description No Information Available Social History [...] weekly PAULA GarciaP-C for 8 weeks 1.25mg (95086 Ut) Capsules Valsartan-Hydrochlor 1 by mouth every 90tabs I10 Lamont RSrikanth 10/15/2019 othiazide day, replaces NAYELI Garcia 160-25mg lisinopril Tablets History Medications Bupropion 1 by mouth 90tabs F32.89 Lamont RSrikanth 10/08/2019 - Hydrochloride ER (XL) every day CLAU Garcia-C 10/15/2019 150mg Tablets ER 24HR Immunizations CPT Code Status Date Vaccine Lot # [id number] Given 01/23/2019 Tdap (Adacel) [id number] Refused 10/15/2019 Influenza Virus Vaccine, Quadrivalent, 3 Yr > Quad , Preserv Free [id number] Refused 10/08/2019 Influenza Virus Vaccine, Quadrivalent, 3 [...] Result H/L Range Note Laboratory test 10/08/2019 [facility] Vitamin D 14.9 ng/mL Low 20-50 1 finding [phone] Total 25(Oh) Vitamin B12 548 pg/mL Normal 180-914 2 Testosterone 10/08/2019 [facility] Testosterone 329 ng/dL 240-950 3 Profile [phone] Free Testosterone ng/dl 4.94 ng/dL 3.87-14.7 4 Bioavailable Testosterone 39 ng/dL Abnormal 50-190 5 Laboratory 10/08/2019 [facility] TSH (Thyroid 2.27 Normal 0.34-5.60 6 test finding [phone] Stim Horm) mcIU/mL Comp Metabolic 08/30/2019 [facility] Sodium 133 mmol/ L Low 135-145 Panel [phone] Potassium 4.0 mmol/L Normal 3.5-5.0 Chloride 97 [...] Egfr 128.8 >60 7 Lipid Profile 08/30/2019 [facility] Triglycerides 97 mg/dL 8 (Trig/Chol/HDL) [phone] Cholesterol 162 mg/dL 9 HDL Cholesterol 75.0 [...] developed and its performance characteristics determined by [facility] in a manner consistent with CLIA requirements. This test has not been cleared or approved by the U.S. Food and Drug Administration. 4 ADDITIONAL INFORMATION Testing performed by [facility]. This test was developed and its performance characteristics determined by [facility] in a manner consistent with CLIA requirements. This test has not been cleared or approved by the U.S. Food and Drug Administration. 5 ADDITIONAL INFORMATION Testing performed by [facility]. This test was developed and its performance characteristics determined by [facility] in a manner consistent with CLIA requirements. This test has not been cleared or approved by the U.S. Food and Drug Administration. Test Performed by: [facility] [address] [place] [address] Store Protection Specialist: Bandar Granger M.D. Ph.D.; [facility]# [id number] 7 Because ethnic data is not always [...] >189 Procedures Date Code Description Status 02/07/2017 [id number] Colonoscopy Completed Medical Devices Description No Information [...] 9:00 am - NAYELI Higgins at Main Tcfggn8703/03/2020 8:45 am - NAYELI Higgins at Main Mkffxj2910/15/2019 - KALA Higgins55.9 Vitamin D deficiency, unspecifiedNew Medication: Vitamin D (Ergocalciferol) 1.25 mg (54267 Ut) - take 1 capsule by mouth twice weekly for 8 weeksComments:correct this with high dose Vit DFollow up:2 weeks, cancel appt on the 50bhH39.89 Other specified depressive episodesComments:did not tolerated wellbutrin. Discussed reducing alcohol intake as this is a depressant, correct VitD deficiency as wellR53.1 WeaknessComments:out of work due to weakness, will correct Vit D, discussed smoking cessation, avoid alcohol , follow in 2 weeks. consider light dutyR05 CoughComments:?ACEI induced vs COPD/ smoker will order CXR and spirometry if cough continues after stopping ACEII10 Essential (primary) hypertensionNew Medication:Valsartan-Hydrochlorothiazide 160 -25 mg - 1 by mouth every day, replaces lisinoprilComments:stop KWAKU and start ARB to see if this helps with his cough Functional Status Description No Information Available Mental Status Description No Information Available Referrals Description No Information Available
--- OUTSIDE RECORDS SUMMARY | 2019-11-27 14:01 | XMS REPORT | Continuity of Care Document ---
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 [phone] Problems Description No Information Available Social History [...] Available Procedures Date Code Description Status 11/11/2019 25703 Holter Monitor Review (24 hr)dr review & interp only Completed 11/07/2019 74086 ECG Monitor/Recording W/Visual Superimposition Scanning Completed 11/07/2019 34451 ECG Monitor/Recording W/Visual Superimposition Scanning Completed 11/06/2019 82916 EKG Tracing & Interpretation Completed Medical Devices Description No Information Available Encounters Type Date Location Provider Dx Diagnosis Office Visit 11/06/2019 [facility] Stefany SSrikanth I10 Essential ( primary) [...] 4:20 pm - Stefany Navarrete M.D. at [facility]11/29/2019 2:00 pm - [facility] at [facility]12/10/2019 10:00 am - [facility] at [facility]2019 10:30 am - Stefany Navarrete M.D. at [facility]11/06/2019 - Stefany Navarrete M.D.I10 Essential (primary) nqktyvkzkujbX92.83 Other wboiyvhD75 Syncope and collapseNew Orders:Echocardiogram, Scheduled: tress Test, Exercise Echocardiogram, Scheduled: 12/10/19Follow up:ov 4-8 wks ov to discuss all ewllwZ42.0 Tachycardia, pmxreapzkbfT06.31 Abnormal electrocardiogram [ECG] [EKG]F17.210 Nicotine dependence, cigarettes, uncomplicated Functional Status Description No Information Available Mental Status Description No Information Available Referrals Description No Information Available
[2019-11-27 14:48] LABS: Hematocrit 39 % (42-52); Hemoglobin 13.7 g/dL (14.0-18.0); Mean Corpuscular HGB Conc 35 g/dL (31-36); Mean Corpuscular Hemoglobin 37 pg (27-31); Mean Corpuscular Volume 104 fL (80-94); Red Blood Count 3.75 10^6 /uL (4.18-5.48); Red Cell Distribution Width 15 % (10-15); White Blood Count 5.6 10^3/uL (3.5-10.8)
[2019-11-27 15:02] LABS: Albumin/Globulin Ratio 1.4 (1-3); BUN/Creatinine Ratio 16.9 (8-20); EGFR African American 116.4 (>60); EGFR Non-African American 96.2 (>60); Globulin 2.9 g/dL (2-4); Magnesium 2.1 mg/dL (1.9-2.7); Potassium 3.7 mmol/L (3.5-5.0); Total Bilirubin 0.8 mg/dL (0.2-1.0); Total Protein 6.9 g/dL (6.4-8.9)
[2019-11-27 15:04] LABS: Troponin I 0.01 ng/mL (<0.03)
[2019-11-27 15:20] LABS: ABS Basophils 0.1 10^3/ul (0-0.2); ABS Eosinophils 0.1 10^3/ul (0-0.6); ABS Lymphocytes 1.7 10^3/ul (1.0-4.8); ABS Monocytes 0.6 10^3/ul (0-0.8); ABS Neutrophils 3.1 10^3/ul (1.5-7.7); Eosinophil % 1.6 %; Mean Platelet Volume 7.5 fL (7.4-10.4); Nucleated Red Blood Cells % 0.1; Platelet Count 120 10^3/uL (150-450)
[2019-11-27] MEDS: Thiamine TAB* 100 MG TAB PO ONE (16:03)
[2019-11-27 16:20] LABS: Urine Appearance Cloudy; Urine Bilirubin Negative (Negative); Urine Blood Negative (Negative); Urine Color Yellow; Urine Glucose 1+(50 mg/dL) (Negative); Urine Ketones Negative (Negative); Urine Nitrite Negative (Negative); Urine Protein Negative (Negative); Urine Specific Gravity 1.006 (1.010-1.030); Urine Urobilinogen Negative (Negative)
[2019-11-27 17:14] VITALS: BP 97/57
== END 2019-11-27 17:12 | disposition home or self-care (01) ==
LOC: ED 12:02
DX: E87.1 Hypo-osmolality and hyponatremia (principal); R26.9 Unspecified abnormalities of gait and mobility; K92.1 Melena; F10.10 Alcohol abuse, uncomplicated
CPT/HCPCS: 36415; 70450; 71046; 80053; 81003; 82270; 82607; 83735; 84484; 85025; 93005; 99283; A9270-GY